=== PATIENT | male | born 1990 | race Two or more races ===

== ENCOUNTER 2023-03-03 15:01 | Emergency (ER) | payer OTHER ==
[2023-03-03] MEDS ORDERED: Ketorolac 30 MG/ML SDV IM ONE (15:43)
[2023-03-03] MEDS ORDERED: Orphenadrine 60 MG/2 ML Inj IM ONE (15:44)
== END 2023-03-03 16:16 | disposition home or self-care (01) ==
LOC: CC.ED 15:01
DX: S16.1XXA Strain of muscle, fascia and tendon at neck level, initial encounter (principal); S39.012A Strain of muscle, fascia and tendon of lower back, initial encounter; I10 Essential (primary) hypertension; E11.9 Type 2 diabetes mellitus without complications; E03.9 Hypothyroidism, unspecified; Z72.0 Tobacco use; W22.09XA Striking against other stationary object, initial encounter; Y99.0 Civilian activity done for income or pay
CPT/HCPCS: 96372; 99283; J1885; J2360